=== PATIENT | male | born 1960 | race Caucasian/White ===

== ENCOUNTER 2023-06-22 09:50 | Emergency (ER) | payer OTHER ==
[~2023-06-22] VITALS: Ht 177.8 cm; Wt 90.7 kg
[2023-06-22 11:48] LABS: BASOPHILS ABSOLUTE AUTO 0.09 K/mm3 (0.00-0.23); BASOPHILS PERCENT AUTO 1 % (0-2); EOSINOPHILS ABSOLUTE AUTO 0.72 K/mm3 (0.00-0.68); EOSINOPHILS PERCENT AUTO 7 % (0-6); Hematocrit 45.6 % (37.0-53.0); IMMATURE GRAN ABSOLUTE AUTO 0.05 K/mm3 (0.00-0.10); IMMATURE GRAN PERCENT AUTO 1 % (0-1); LYMPHOCYTES ABSOLUTE AUTO 1.73 K/mm3 (0.84-5.20); LYMPHOCYTES PERCENT AUTO 17 % (21-46); MONOCYTES ABSOLUTE AUTO 0.73 K/mm3 (0.16-1.47); MONOCYTES PERCENT AUTO 7 % (4-13); Mean Corpuscular HGB 29.2 pg (26.0-34.0); Mean Corpuscular HGB Conc 32.9 g/dL (31.5-36.5); Mean Corpuscular Volume 89 fL (80-100); Mean Platelet Volume 9.9 fL (9.1-12.4); NEUTROPHILS ABSOLUTE AUTO 6.77 K/mm3 (1.96-9.15); NEUTROPHILS PERCENT AUTO 67 % (41-73); Platelet Count 286 K/mm3 (150-400); RDW Coefficient Variation 13.2 % (11.7-14.2); RDW Standard Deviation 42.4 fL (35.1-46.3); Red Blood Cell Count 5.13 M/mm3 (4.30-5.90); White Blood Cell Count 10.09 K/mm3 (4.00-11.30)
[2023-06-22 12:21] LABS: Bilirubin, Total 0.5 mg/dL (0.1-1.0); Bun/Creatinine Ratio 16.5 (12.0-20.0); Calcium, Blood 9.6 mg/dL (8.5-10.1); Creatinine, Blood 1.03 mg/dL (0.60-1.20); Globulin, Blood 4.1 g/dL (2.2-4.0); Potassium, Blood 4.7 mmol/L (3.5-5.5); Total Protein, Blood 8.1 g/dL (6.4-8.2)
[2023-06-22 14:11] VITALS: BP 153/98
[2023-06-22] MEDS ORDERED: MethylPREDNISolone Sod Succ 125 MG Vial IV ONE (15:35)
[2023-06-22] MEDS ORDERED: Azithromycin 250 MG Tab PO ONE (15:35)
[2023-06-22] MEDS ORDERED: Ipratropium/Albuterol SulF 2.5-0.5MG/3 ML Amp INH ONE (15:35)
[2023-06-22] MEDS ORDERED: Zithromax250 MG PO (15:37)
[2023-06-22] MEDS ORDERED: Prednisone20 MG PO (15:37)
== END 2023-06-22 16:05 | disposition home or self-care (01) ==
LOC: ER 09:50
PROVIDERS: Physician Assistant
DX: J44.1 Chronic obstructive pulmonary disease with (acute) exacerbation (principal); Z87.891 Personal history of nicotine dependence; Z79.2 Long term (current) use of antibiotics; Z79.52 Long term (current) use of systemic steroids; Z88.0 Allergy status to penicillin
CPT/HCPCS: 71046; 80053; 83690; 84145; 85025; 94640; 94664; 96374; 99285-25; A9270; J2930

== ENCOUNTER 2024-09-19 10:57 | Day surgery (SDC) | payer OTHER ==
[~2024-09-19] VITALS: Ht 177.8 cm; Wt 100.0 kg
[~2024-09-19 10:57] MED LIST: Lactated Ringer's 1,000 ML IV ONE; Lidocaine HCl 2% 10 ML SDA ONE; Prednisone20 MG PO; Zithromax250 MG PO
[2024-09-19] MEDS ORDERED: FLUTICASONE-SA1 EAC9 (11:11)
[2024-09-19] MEDS ORDERED: AMLODIPINE BESY10 MG PO (11:11)
[2024-09-19] MEDS ORDERED: Ventolin5 MG/1 ML INH (11:11)
[2024-09-19] MEDS ORDERED: LISINOPRIL-HCT1 EACH PO (11:11)
[2024-09-19] MEDS ORDERED: TAMSULOSIN HCL0.4 M1 PO (11:11)
[2024-09-19] MEDS ORDERED: ALBU90OI INH (11:12)
[2024-09-19] MEDS ORDERED: ATOR40TA PO (11:12)
[2024-09-19] MEDS ORDERED: CARVEDILOL6.25 MG PO (11:12)
[2024-09-19] MEDS ORDERED: Aspir 8181 MG PO (11:16)
[2024-09-19] MEDS ORDERED: Lactated Ringer's 1,000 ML IV ONE (11:36)
[2024-09-19] MEDS ORDERED: CeFAZolin Sodium 2,000 MG VIAL ONE (11:43)
[2024-09-19] MEDS ORDERED: Midazolam HCl 1MG / ML 2ML Vial ONE (13:05)
[2024-09-19] MEDS ORDERED: FentaNYL Citrate 50 MCG/ML 2 ML Injection ONE (13:05)
[2024-09-19] MEDS ORDERED: propofoL 20 ML IV ONE (13:05)
[2024-09-19] MEDS ORDERED: Dexamethasone Sod Phos 10 MG/ML 1ML VIAL ONE (13:08)
[2024-09-19] MEDS ORDERED: Ondansetron HCl 2 MG / ML 2ML Vial ONE (13:08)
[2024-09-19] MEDS ORDERED: Phenylephrine HCl 100 MCG/ML-NS 10MLSYR (1MG/10ML) ONE (13:55)
[2024-09-19 14:54] VITALS: BP 105/79
[2024-09-19] MEDS ORDERED: HYDROcodone 5-APAP 325 TAB ONE (15:04)
--- NOTE | 2024-09-19 15:05 | NUR ---
09/19/24 4123 CONG MURPHY UP IN CHAIR TOLERATING LIQUIDS, DECLINED SNACK AT THIS TIME
== END 2024-09-19 15:36 | disposition home or self-care (01) ==
LOC: ORSCSDS 10:57
PROVIDERS: Orthopaedic Surgery
PROC: 0JNJ0ZZ Release Right Hand Subcutaneous Tissue and Fascia, Open Approach (ICD-10-PCS; principal; 2024-09-19 12:30)
DX: M72.0 Palmar fascial fibromatosis [Dupuytren] (principal); I25.2 Old myocardial infarction; I25.10 Atherosclerotic heart disease of native coronary artery without angina pectoris; E78.5 Hyperlipidemia, unspecified; Z87.891 Personal history of nicotine dependence; J44.89 Other specified chronic obstructive pulmonary disease; I12.9 Hypertensive chronic kidney disease with stage 1 through stage 4 chronic kidney disease, or unspecified chronic kidney disease; N18.9 Chronic kidney disease, unspecified; N40.0 Benign prostatic hyperplasia without lower urinary tract symptoms; Z79.899 Other long term (current) drug therapy; Z79.82 Long term (current) use of aspirin
CPT/HCPCS: 88304; A9270; J0690; J1100; J2003; J2250; J2371; J2405; J2704; J3010; J7120